=== PATIENT | male | born 1970 | race Caucasian/White ===

== ENCOUNTER → 2020-11-13 | Outpatient (CLI) | payer BC | END | disposition home or self-care (01) | LOC: LABWHC1 16:11 | PROVIDERS: ATTEND Family Medicine | DX: Z20.822 Contact with and (suspected) exposure to COVID-19 (principal) | CPT/HCPCS: U0003; C9803 ==

== ENCOUNTER 2020-12-04 10:45 | Day surgery (SDC) | payer BC ==
[2020-12-04] MEDS ORDERED: LACTATED RINGERS 1,000 ML IV SCH (10:56)
[2020-12-04 11:02] VITALS: RESP 16; TEMP 97
[2020-12-04] MEDS ORDERED: LIDOCAINE 1% (10MG/ML) FOR IV START INTRADERMA ONE (11:06)
[2020-12-04] MEDS ORDERED: PROPOFOL 10 MG/ML 20 ML VIAL IV ONE (11:53)
[2020-12-04] MEDS ORDERED: LIDOCAINE 1% INJ 10MG/ML (20 ML MDV) ONE (11:53)
[2020-12-04] MEDS ORDERED: fentaNYL (PF) 50 MCG/ML 2 ML AMP ONE (11:53)
--- NOTE | 2020-12-04 12:24 | P.PCN ---
Date of Procedure: 12/04/20 Description of Procedure: BRIEF HISTORY: Patient is a 50-year-old male presenting for outpatient colonoscopy for screening for malignant neoplasm colon. No prior colonoscopies reported. No family history of colon cancer. No change in bowel habits or abdominal pain. PROCEDURE PERFORMED: Colonoscopy with polypectomy. PREOPERATIVE DIAGNOSIS: Screening for malignant neoplasm of the colon, no prior colonoscopy reported. ESTIMATED BLOOD LOSS: Minimal. IV sedation per Anesthesia. PROCEDURE: After informed consent was obtained, the patient, was brought into the endoscopy unit. IV sedation was administered by Anesthesia under continuous monitoring. Digital rectal examination was normal. Initially the Olympus CF-190 flexible video colonoscope was then inserted in the rectum, gradually advanced into the cecum without any difficulty. Careful examination was performed as the scope was gradually being withdrawn. Ileocecal valve and the appendiceal orifice were visualized and appeared normal. Prep was excellent. Mucosa of the cecum, ascending colon, transverse colon, descending colon, sigmoid colon, and rectum appeared normal. 2 flat polyps measuring 4 and 8 mm in the transverse colon and rectum removed with cold snare polypectomy. Multiple small and large mouth diverticula in the sigmoid colon. Retroflexion was performed in the rectum and no lesions were seen. The patient tolerated the procedure well. IMPRESSION: 2 polyps removed with cold snare polypectomy from the transverse colon and rectum. Moderate sigmoid diverticulosis. RECOMMENDATIONS: Findings of this examination were discussed with the patient .and his family. Okay to resume diet. Okay to resume medications. Await pathology from polypectomy. Recommend repeat colonoscopy in 5 years for history of colon polyps pending pathology from polypectomies.
[2020-12-04 12:58] VITALS: BP 117/75; PULSE 60
== END 2020-12-04 13:11 | disposition home or self-care (01) ==
LOC: ORWHC2ENDO 10:45
PROVIDERS: ATTEND Internal Medicine
DX: Z12.11 Encounter for screening for malignant neoplasm of colon (principal); D12.3 Benign neoplasm of transverse colon; D12.8 Benign neoplasm of rectum; K57.30 Diverticulosis of large intestine without perforation or abscess without bleeding; Z98.890 Other specified postprocedural states
CPT/HCPCS: 88305; 45385; J2001; J3010; J2704

== ENCOUNTER 2021-08-20 13:33 | Observation (INO) | payer BC ==
[2021-08-20] MEDS ORDERED: ASPIRIN 81 MG PO STA (13:49)
--- NOTE | 2021-08-20 13:59 | ED ---
General Adult HPI - General Chief complaint: Shortness of Breath Stated complaint: SOB/Chest Pressure Time Seen by Provider: 08/20/21 13:40 Source: patient, RN notes reviewed Mode of arrival: ambulatory Limitations: no limitations - History of Present Illness Initial comments: Patient is a healthy 51-year-old male presenting to the emergency Department with complaints of shortness of breath and chest pressure that started yesterday. He denies any fevers, cough. He states this has been intermittent, there is no alleviating or aggravating factors. There is no radiation of the pain. He takes no medications, he has no history of heart disease, he had a stress test in 2014, no abnormal findings. He denies history of blood clots. Denies any abdominal pain, no nausea or vomiting. He denies any falls or trauma. He has no further complaints at this time. Patient's vitals are stable upon arrival. - Related Data Home Medications Medication Instructions Recorded Confirmed No Known Home Medications 08/20/21 08/20/21 Allergies Allergy/AdvReac Type Severity Reaction Status Date / Time No Known Allergies Allergy Verified 08/20/21 14:17 Review of Systems ROS Statement: Those systems with pertinent positive or pertinent negative responses have been documented in the HPI. ROS Other: All systems not noted in ROS Statement are negative. Past Medical History History of Any Multi-Drug Resistant Organisms: None Reported Past Surgical History: Hernia Repair, Orthopedic Surgery Additional Past Surgical History / Comment(s): Left Rotator cuff repair Past Anesthesia/Blood Transfusion Reactions: No Reported Reaction Past Psychological History: No Psychological Hx Reported Smoking Status: Light tobacco smoker General Exam - General Exam Comments Initial Comments: GENERAL: Patient is well-developed and well-nourished. Patient is nontoxic and in no acute distress. HEAD: Atraumatic, normocephalic. EYES: Pupils equal round and reactive to light, extraocular movements intact, sclera anicteric, conjunctiva are normal. Eyelids were unremarkable. ENT: Nares patent, oropharynx clear without exudates. Moist mucous membranes. NECK: Normal range of motion, supple without lymphadenopathy or JVD. LUNGS: Unlabored respirations. Breath sounds clear to auscultation bilaterally and equal. No wheezes rales or rhonchi. HEART: Regular rate and rhythm without murmurs, rubs or gallops. ABDOMEN: Soft, nontender, normoactive bowel sounds. No guarding, no rebound. No masses appreciated. MUSCULOSKELETAL: Normal extremities with adequate strength and normal range of motion, no pitting or edema. No clubbing or cyanosis. No pain with palpation of the anterior chest wall. NEUROLOGICAL: Patient is alert and oriented x 3. Motor and sensory are also intact. Cranial nerves II through XII grossly intact. Symmetrical smile. Normal speech, normal gait. PSYCH: Normal mood, normal affect. SKIN: Warm, Dry, normal turgor, no rashes or lesions noted. Limitations: no limitations Course Vital Signs 08/20/21 08/20/21 13:34 14:43 Temperature 98.2 F Pulse Rate 73 Respiratory 20 20 Rate Blood Pressure 142/92 O2 Sat by Pulse 98 Oximetry EKG Findings - EKG Comments: EKG Findings:: Normal sinus rhythm, normal ECG, no signs of acute ST segment elevation. Ventricular rate 68, NE interval 146, QT 422. Medical Decision Making - Medical Decision Making Patient is a healthy 51-year-old male here with shortness of breath, chest pressure that is been intermittent since yesterday. No fevers, no cough, vital signs are stable. EKG reads normal sinus rhythm, no acute ST segment elevation. Last stress test was in 2014, no abnormal findings. He takes no medications. Labs are within normal limits including a negative d-dimer, troponin is 0.014. Chest x-ray showing no acute process. Patient had negative: Test today at urgent care. Patient will be admitted in observation and further cardiac rule out, serial troponins. He is agreeable to this plan of care. Case discussed with . Patient sent in by Dr. Swanson. - Lab Data Result diagrams: 08/20/21 13:42 08/20/21 13:42 Lab Results 08/20/21 08/20/21 08/20/21 Range/Units 13:42 13:42 13:42 WBC 7.6 (3.8-10.6) k/uL RBC 4.66 (4.30-5.90) m/uL Hgb 15.2 (13.0-17.5) gm/dL Hct 44.4 (39.0-53.0) % MCV 95.4 (80.0-100.0) fL MCH 32.7 (25.0-35.0) pg MCHC 34.3 (31.0-37.0) g/dL RDW 12.0 (11.5-15.5) % Plt Count 360 (150-450) k/uL MPV 6.6 Neutrophils % 62 % Lymphocytes % 30 % Monocytes % 4 % Eosinophils % 2 % Basophils % 0 % Neutrophils # 4.7 (1.3-7.7) k/uL Lymphocytes # 2.2 (1.0-4.8) k/uL Monocytes # 0.3 (0-1.0) k/uL Eosinophils # 0.1 (0-0.7) k/uL Basophils # 0.0 (0-0.2) k/uL PT 10.4 (9.0-12.0) sec INR 1.0 (<1.2) APTT 23.6 (22.0-30.0) sec D-Dimer <0.17 (<0.60) mg/L FEU Sodium 136 L (137-145) mmol/L Potassium 3.8 (3.5-5.1) mmol/L Chloride 104 (98-107) mmol/L Carbon Dioxide 24 (22-30) mmol/L Anion Gap 8 mmol/L BUN 13 (9-20) mg/dL Creatinine 0.88 (0.66-1.25) mg/dL Est GFR (CKD-EPI)AfAm >90 (>60 ml/min/1.73 sqM) Est GFR (CKD-EPI)NonAf >90 (>60 ml/min/1.73 sqM) Glucose 95 (74-99) mg/dL Calcium 9.7 (8.4-10.2) mg/dL Magnesium 2.2 (1.6-2.3) mg/dL Total Bilirubin 0.8 (0.2-1.3) mg/dL AST 25 (17-59) U/L ALT 25 (4-49) U/L Alkaline Phosphatase 67 (38-126) U/L Troponin I (0.000-0.034) ng/mL NT-Pro-B Natriuret Pep pg/mL Total Protein 7.6 (6.3-8.2) g/dL Albumin 4.6 (3.5-5.0) g/dL Urine Color Urine Appearance (Clear) Urine pH (5.0-8.0) Ur Specific Hamilton (1.001-1.035) Urine Protein (Negative) Urine Glucose (UA) (Negative) Urine Ketones (Negative) Urine Blood (Negative) Urine Nitrite (Negative) Urine Bilirubin (Negative) Urine Urobilinogen (<2.0) mg/dL Ur Leukocyte Esterase (Negative) Urine RBC (0-5) /hpf Urine WBC (0-5) /hpf Urine Mucus (None) /hpf 08/20/21 08/20/21 08/20/21 Range/Units 13:42 13:42 14:13 WBC (3.8-10.6) k/uL RBC (4.30-5.90) m/uL Hgb (13.0-17.5) gm/dL Hct (39.0-53.0) % MCV (80.0-100.0) fL MCH (25.0-35.0) pg MCHC (31.0-37.0) g/dL RDW (11.5-15.5) % Plt Count (150-450) k/uL MPV Neutrophils % % Lymphocytes % % Monocytes % % Eosinophils % % Basophils % % Neutrophils # (1.3-7.7) k/uL Lymphocytes # (1.0-4.8) k/uL Monocytes # (0-1.0) k/uL Eosinophils # (0-0.7) k/uL Basophils # (0-0.2) k/uL PT (9.0-12.0) sec INR (<1.2) APTT (22.0-30.0) sec D-Dimer (<0.60) mg/L FEU Sodium (137-145) mmol/L Potassium (3.5-5.1) mmol/L Chloride (98-107) mmol/L Carbon Dioxide (22-30) mmol/L Anion Gap mmol/L BUN (9-20) mg/dL Creatinine (0.66-1.25) mg/dL Est GFR (CKD-EPI)AfAm (>60 ml/min/1.73 sqM) Est GFR (CKD-EPI)NonAf (>60 ml/min/1.73 sqM) Glucose (74-99) mg/dL Calcium (8.4-10.2) mg/dL Magnesium (1.6-2.3) mg/dL Total Bilirubin (0.2-1.3) mg/dL AST (17-59) U/L ALT (4-49) U/L Alkaline Phosphatase (38-126) U/L Troponin I 0.014 (0.000-0.034) ng/mL NT-Pro-B Natriuret Pep 60 pg/mL Total Protein (6.3-8.2) g/dL Albumin (3.5-5.0) g/dL Urine Color Light Yellow Urine Appearance Clear (Clear) Urine pH 5.5 (5.0-8.0) Ur Specific Hamilton 1.007 (1.001-1.035) Urine Protein Negative (Negative) Urine Glucose (UA) Negative (Negative) Urine Ketones Trace H (Negative) Urine Blood Trace H (Negative) Urine Nitrite Negative (Negative) Urine Bilirubin Negative (Negative) Urine Urobilinogen <2.0 (<2.0) mg/dL Ur Leukocyte Esterase Negative (Negative) Urine RBC 1 (0-5) /hpf Urine WBC <1 (0-5) /hpf Urine Mucus Rare H (None) /hpf Disposition Clinical Impression: Chest pain Disposition: ADMITTED IP TO THIS HOSP Condition: Stable Referrals: Deng Hinds MD [Primary Care Provider] - 1-2 days Decision Date: 08/20/21 Decision Time: 15:27
[2021-08-20 14:11] LABS: Basophils % (A) 0 %; Eosinophils # (A) 0.1 k/uL (0-0.7); Eosinophils % (A) 2 %; HCT 44.4 % (39.0-53.0); HGB 15.2 gm/dL (13.0-17.5); Lymphocytes # (A) 2.2 k/uL (1.0-4.8); Lymphocytes % (A) 30 %; MCH 32.7 pg (25.0-35.0); MCHC 34.3 g/dL (31.0-37.0); MCV 95.4 fL (80.0-100.0); Mean Platelet Volume 6.6; Monocytes # (A) 0.3 k/uL (0-1.0); Monocytes % (A) 4 %; Neutrophils # (A) 4.7 k/uL (1.3-7.7); Neutrophils % (A) 62 %; Platelet Count 360 k/uL (150-450); RBC 4.66 m/uL (4.30-5.90); WBC 7.6 k/uL (3.8-10.6)
--- NOTE | 2021-08-20 14:18 | XR ---
EXAMINATION TYPE: XR chest 2V DATE OF EXAM: 08/20/2021 COMPARISON: NONE TECHNIQUE: PA and lateral views submitted. HISTORY: Chest pain FINDINGS: The lungs are clear and there is no pneumothorax, pleural effusion, or focal pneumonia. Heart size normal. No overt failure. Biapical pleural thickening. Hyperinflation suggests COPD. Hypertrophic and degenerative change of the spine IMPRESSION: 1. No acute process. Correlate for COPD.
[2021-08-20 14:25] LABS: ALT 25 U/L (4-49); AST 25 U/L (17-59); African American GFR (CKD) >90 (>60 ml/min/1.73 sqM); Albumin 4.6 g/dL (3.5-5.0); Alkaline Phosphatase 67 U/L (38-126); Anion Gap 8 mmol/L; Blood Urea Nitrogen 13 mg/dL (9-20); Calcium 9.7 mg/dL (8.4-10.2); Carbon Dioxide 24 mmol/L (22-30); Chloride 104 mmol/L (98-107); Glucose 95 mg/dL (74-99); Magnesium 2.2 mg/dL (1.6-2.3); Non-African American GFR(CKD) >90 (>60 ml/min/1.73 sqM); Partial Thromboplastin Time 23.6 sec (22.0-30.0); Potassium 3.8 mmol/L (3.5-5.1); Prothrombin Time 10.4 sec (9.0-12.0); Sodium 136 mmol/L (137-145); Total Bilirubin 0.8 mg/dL (0.2-1.3); Total Protein 7.6 g/dL (6.3-8.2)
[2021-08-20 14:38] LABS: Appearance,Urine Clear (Clear); Bilirubin,Urine Negative (Negative); Blood,Urine Trace (Negative); Color,Urine Light Yellow; Glucose,Urine (UA) Negative (Negative); Ketones,Urine Trace (Negative); Leukocyte Esterase,Urine Negative (Negative); Mucus,Urine Rare /hpf; Nitrite,Urine Negative (Negative); PH, Urine 5.5 (5.0-8.0); Protein,Urine Negative (Negative); RBC,Urine 1 /hpf (0-5); Specific Gravity,Urine 1.007 (1.001-1.035); Urobilinogen,Urine <2.0 mg/dL (<2.0); WBC,Urine <1 /hpf (0-5)
[2021-08-20] MEDS ORDERED: NITROGLYCERIN SL TABS 0.4 MG TAB SUBLINGUAL PRN (15:24)
--- NOTE | 2021-08-21 08:05 | P.CRDCN ---
History of Present Illness History of present illness: HISTORY OF PRESENTING ILLNESS This is a pleasant 51-year-old male with past medical history of tobacco use. 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 We have been asked to see in consultation f or Chest pain. Patient presents emergency department with chest pressure and shortness of breath. His chest pressure and shortness of breath started Friday. Describes it as a dull pressure. 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 Friday at work, he was noticing more frequent chest pressure and short of breath, he felt like he couldn't take a deep breath. He denies associated nausea, vomiting, diaphoresis, lightheadedness, or dizziness. He states it was non-exertional and non-radiating. However, he did feel a pressure in his lower neck. He denies symptoms of orthopnea or PND. Denies palpitations, syncope or pre-syncope. He denies history of diabetes, MD, Stroke, Diabetes or hypertension or heart failure. Denies family history of CAD. He states he occasionally has a cigar and cigarettes once in a while, sometimes not even weekly. He denies illicit drug use. Does occassionally drink alcohol, not daily use. DIAGNOSTICS EKG reveals sinus rhythm, rate 68, LVH, no significant ST-T wave abnormalities Telemetry tracings indicate sinus mechanism HR 50s-60s Chest xray hyperinflation of lungs, no acute cardiopulmonary process Laboratory reviewed, CBC unremarkable, d-dimer negative, sodium 136, potassium 3.8, BUN 13, serum creatinine 0.8, magnesium 2.2, troponin negative 3, proBNP 60 Current home medications include none Stress echo in 2015- negative REVIEW OF SYSTEMS At the time of my exam: CONSTITUTIONAL: Denies fever or chills. CARDIOVASCULAR: +chest pain, +shortness of breath, Denies orthopnea, PND or palpitations. RESPIRATORY: Denies cough. GASTROINTESTINAL: Denies abdominal pain, diarrhea, constipation, nausea or vomiting. MUSCULOSKELETAL: Denies myalgias. NEUROLOGIC: Denies numbness, tingling, headache or weakness. ENDOCRINE: Denies fatigue, weight change, polydipsia or polyurina. GENITOURINARY: Denies burning, hematuria or urgency with micturation. HEMATOLOGIC: Denies history of anemia or bleeding. PHYSICAL EXAMINATION Blood pressure 122/77, heart rate 4, afebrile saturations 99% on room air CONSTITUTIONAL: No apparent distress. HEENT: Head is normocephalic. Pupils are equal, round. Sclerae anicteric. Mucous membranes of the mouth are moist. No JVD. No carotid bruit. CHEST EXAMINATION: Lungs are clear to auscultation. No chest wall tenderness is noted on palpation or with deep breathing. HEART EXAMINATION: Regular rate and rhythm. S1, S2 heard. No murmurs, gallops or rub. ABDOMEN: Soft, nontender. Positive bowel sounds. EXTREMITIES: 2+ peripheral pulses, no lower extremity edema and no calf tenderness. SKIN: warm, dry NEUROLOGIC EXAMINATION: Patient is awake, alert and oriented x3. ASSESSMENT Chest pain, atypical, acute coronary syndrome ruled out Tobacco use PLAN An acute coronary event has been ruled out with no EKG evidence of ischemia and negative cardiac enzymes. Obtain 2D echocardiogram and doppler study to assess cardiac structure and function. Perform stress echo test to assess for stress induced cardiac ischemia. If ab normal will consider coronary angiography. Check Lipid Panel Smoking cessation discussed and highly recommended. If stress test with no evidence of reversible ischemia ok to discharge from cardiology perspective. Thank you kindly for this consultation. Nurse Practitioner note has been reviewed, I agree with a documented findings and plan of care. Patient was seen and examined. Past Medical History Additional Past Medical History / Comment(s): previuos diverticulitis History of Any Multi-Drug Resistant Organisms: None Reported Past Surgical History: Hernia Repair, Orthopedic Surgery Additional Past Surgical History / Comment(s): Left Rotator cuff repair Past Anesthesia/Blood Transfusion Reactions: No Reported Reaction Past Psychological History: No Psychological Hx Reported Smoking Status: Light tobacco smoker Past Alcohol Use History: Occasional - Past Family History Father Family Medical History: Hyperlipidemia, Hypertension Additional Family Medical History / Comment(s): kidney failure and hemodialysis, now Mother Additional Family Medical History / Comment(s): leaky valve Medications and Allergies Home Medications Medication Instructions Recorded Confirmed Type No Known Home Medications 08/20/21 08/20/21 History Allergies Allergy/AdvReac Type Severity Reaction Status Date / Time No Known Allergies Allergy Verified 08/20/21 14:17 Physical Exam Vitals: Vital Signs Temp Pulse Pulse Resp BP BP Pulse Ox 08/21/21 07:00 97.5 F L 54 L 18 122/77 99 08/21/21 02:00 52 L 08/21/21 01:57 97.8 F 52 L 18 120/68 98 08/20/21 20:00 18 08/20/21 19:48 98.3 F 56 L 18 135/77 97 08/20/21 14:43 20 08/20/21 13:34 98.2 F 73 20 142/92 98 Intake and Output 08/20/21 08/21/21 08/21/21 22:59 06:59 14:59 Intake Total 0 0 Balance 0 0 Intake: Oral 0 0 Other: Voiding Method Toilet # Voids 2 1 Weight 63.503 kg Results 08/20/21 13:42 08/20/21 13:42 Cardiac Enzymes 08/20/21 08/20/21 08/20/21 Range/Units 13:42 13:42 16:57 AST 25 (17-59) U/L Troponin I 0.014 <0.012 (0.000-0.034) ng/mL 08/20/21 Range/Units 20:01 AST (17-59) U/L Troponin I <0.012 (0.000-0.034) ng/mL Coagulation 08/20/21 Range/Units 13:42 PT 10.4 (9.0-12.0) sec APTT 23.6 (22.0-30.0) sec CBC 08/20/21 Range/Units 13:42 WBC 7.6 (3.8-10.6) k/uL RBC 4.66 (4.30-5.90) m/uL Hgb 15.2 (13.0-17.5) gm/dL Hct 44.4 (39.0-53.0) % Plt Count 360 (150-450) k/uL Comprehensive Metabolic Panel 08/20/21 Range/Units 13:42 Sodium 136 L (137-145) mmol/L Potassium 3.8 (3.5-5.1) mmol/L Chloride 104 (98-107) mmol/L Carbon Dioxide 24 (22-30) mmol/L BUN 13 (9-20) mg/dL Creatinine 0.88 (0.66-1.25) mg/dL Glucose 95 (74-99) mg/dL Calcium 9.7 (8.4-10.2) mg/dL AST 25 (17-59) U/L ALT 25 (4-49) U/L Alkaline Phosphatase 67 (38-126) U/L Total Protein 7.6 (6.3-8.2) g/dL Albumin 4.6 (3.5-5.0) g/dL Current Medications Generic Name Dose Route Start Last Admin Trade Name Freq PRN Reason Stop Dose Admin Aspirin 325 mg 08/21/21 09:00 Aspirin 325 Mg Tab PO DAILY CARMENZA Nitroglycerin 0.4 mg 08/20/21 15:24 Nitroglycerin Sl Tabs 0.4 Mg Tab SUBLINGUAL Q5M PRN Chest Pain Intake and Output 08/20/21 08/21/21 08/21/21 22:59 06:59 14:59 Intake Total 0 0 Balance 0 0 Intake: Oral 0 0 Other: Voiding Method Toilet # Voids 2 1 Weight 63.503 kg 08/20/21 13:42 08/20/21 13:42
[2021-08-21] MEDS ORDERED: ASPIRIN 325 MG TAB PO SCH (09:00)
[2021-08-21] MEDS ORDERED: ASPIRIN 81 MG PO SCH (09:00)
[2021-08-21] MEDS ORDERED: ALPRAZolam 0.25 MG TAB PO PRN (09:27)
[2021-08-21] MEDS ORDERED: ATORVASTATIN 80 MG TAB PO STA (09:27)
[2021-08-21] MEDS ORDERED: ALPRAZolam 0.5 MG TAB PO PRN (09:27)
[2021-08-21] MEDS: SODIUM CHLORIDE 0.9% 1,000 ML in EMPTY BAG 1 BAG IV SCH (09:46)
--- NOTE | 2021-08-21 09:46 | ECHOF ---
Referral Reason:chest pain MEASUREMENTS -------- HEIGHT: 167.6 cm WEIGHT: 63.5 kg BP: 122/77 RVIDd: 4.0 cm (< 3.3) IVSd: 1.1 cm (0.6 - 1.1) LVIDd: 6.0 cm (3.9 - 5.3) LVPWd: 1.0 cm (0.6 - 1.1) IVSs: 1.6 cm LVIDs: 4.6 cm LVPWs: 1.6 cm EF(Teich): 47 % %FS: 24 % LAESV Index (A-L): 35.07 ml/m IVSd: 1.2 cm (0.6 - 1.1) LVIDd: 6.1 cm (3.9 - 5.3) LVPWd: 1.1 cm (0.6 - 1.1) IVSs: 1.5 cm LVIDs: 4.7 cm LVPWs: 1.5 cm EDV(Teich): 189 ml ESV(Teich): 101 ml EF(Teich): 47 % %FS: 24 % SV(Teich): 88 ml Ao Diam: 3.3 cm (2.0 - 3.7) AV Cusp: 2.5 cm (1.5 - 2.6) LA Diam: 3.2 cm (2.7 - 3.8) MV EXCURSION: 20.000 mm (> 18.000) MV EF SLOPE: 65 mm/s (70 - 150) EPSS: 1.7 cm MV E Sarbjit: 0.46 m/s MV DecT: 307 ms MV A Sarbjit: 0.65 m/s MV E/A Ratio: 0.71 RAP: 5.00 mmHg RVSP: 21.37 mmHg FINDINGS -------- Sinus rhythm. Resting bradycardia (HR<60bpm). This was a technically good study. The left ventricle is mildly dilated. Left ventricular wall thickness is normal. There is moderat e global hypokinesis of LV . Overall left ventricular systolic function is moderately impaired with , an EF between 35 - 40 %. The right ventricle is moderately enlarged. LA is moderately dilated 34-39 ml/m2 The right atrial size is normal. Interatrial and interventricular septum intact. The aortic valve is trileaflet, and appears structurally normal. No aortic stenosis or regurgitation. The mitral valve leaflets are mildly thickened. Moderate mitral regurgitation is present. Mild tricuspid regurgitation present. Right ventricular systolic pressure is normal at < 35 mmHg. The right ventricular systolic pressure, as measured by Doppler, is 21.37mmHg. Trace/mild (physiologic) pulmonic regurgitation. The aortic root size is normal. Normal inferior vena cava with normal inspiratory collapse consistent with estimated right atrial pre ssure of 5 mmHg. There is no pericardial effusion. CONCLUSIONS -------- 1. The left ventricle is mildly dilated. 2. There is moderate global hypokinesis of LV . 3. Overall left ventricular systolic function is moderately impaired with, an EF between 35 - 40 %. 4. The right ventricle is moderately enlarged. 5. LA is moderately dilated 34-39 ml/m2 6. The aortic valve is trileaflet, and appears structurally normal. No aortic stenosis or regurgitati on. 7. Moderate mitral regurgitation is present. 8. Mild tricuspid regurgitation present. 9. Trace/mild (physiologic) pulmonic regurgitation. 10. There is no pericardial effusion. STRAINER CLEANER: Tammy Zuniga RDCS
[2021-08-21] MEDS ORDERED: LIDOCAINE 1% INJ 10MG/ML (20 ML MDV) ONE (10:19)
[2021-08-21] MEDS ORDERED: VERAPAMIL 2.5 MG/ML 2 ML AMP ONE (10:19)
[2021-08-21] MEDS ORDERED: fentaNYL (PF) 50 MCG/ML 2 ML AMP ONE (10:31)
[2021-08-21] MEDS ORDERED: HEPARIN SODIUM 1,000 UN/ML (10ML VL) ONE (10:32)
[2021-08-21] MEDS ORDERED: IV FLUID CONTINUATION 900 ML IV ONE (10:39)
[2021-08-21] MEDS ORDERED: fentaNYL (PF) 50 MCG/ML 2 ML AMP IV ONE (10:46)
[2021-08-21] MEDS ORDERED: LIDOCAINE 1% INJ 10MG/ML (20 ML MDV) SQ ONE (10:48)
[2021-08-21] MEDS ORDERED: VERAPAMIL SYRINGE (5 MG/10 ML) INTRAARTER ONE (10:49)
[2021-08-21 10:51] LABS: Chol/HDL Ratio 2.29 Ratio; LDL Cholesterol,Calculated 102.8 mg/dL (0.0-131.0); Triglycerides 60.8 mg/dL (0.00-149.00); VLDL Calculation 12.16 mg/dL (5.00-40.00)
[2021-08-21] MEDS ORDERED: IOPAMIDOL-370 125ML BTL INJ ONE (11:19)
[2021-08-21] MEDS ORDERED: RX INFO: IV CONTRAST WAS GIVEN 1 EACH MISC MISCELLANE PRN (11:29)
[2021-08-21] MEDS ORDERED: SODIUM CHLORIDE 0.9% 1,000 ML IV SCH (11:30)
[2021-08-21] MEDS ORDERED: METOPROLOL SUCCINATE (ER) 25 MG TAB.ER.24H PO SCH (11:45)
--- NOTE | 2021-08-21 12:17 | CC ---
CARDIAC CATHETERIZATION REPORT Mr. Monterroso is a 51-year-old male with no history of cardiac disease who presented with symptoms of progressive dyspnea on exertion and chest discomfort. His cardiac enzymes and EKG were unremarkable, but he had an echocardiogram that revealed mildly dilated left ventricle with mild to moderate global hypokinesis. In view of that, recommendation was made regarding cardiac catheterization. The procedure as well as its risks and complications were discussed with the patient, who was in full understanding and agreement. PROCEDURE DESCRIPTION: Patient was brought to the sleep lab technologist in a fasting, semi-sedated state after receiving fentanyl and Benadryl and achieving a moderate conscious sedated state. The right radial artery was cannulated with the needle, but there was inability to advance a wire in spite of multiple attempts. At that point, using Xylocaine anesthesia and Seldinger technique, a 6-Nigerian sheath was introduced in the right femoral artery. Selective right and left coronary angiography was performed using 6-Nigerian 4 bend right and left Judkin's catheters. Multiple views were taken of the arteries, including hemiaxial views. Following that, a 6-Nigerian tight pigtail catheter was introduced into the left ventricle and a 30-degree SERRANO view of the left ventricle was obtained. Following that, catheter and sheath were removed. Hemostasis was obtained with deployment of an Angio- Seal. There was no immediate complication. Patient was returned to his room in stable condition. FINDINGS: LEFT MAIN: This is a large-sized vessel bifurcating into left circumflex and left anterior descending artery. Left main coronary artery has no evidence of high- grade stenosis. LEFT ANTERIOR DESCENDING CORONARY ARTERY: This is a large-sized vessel reaching to the apex with a wrap around the apex segment giving rise to a large diagonal branch in the mid segment. The left anterior descending coronary artery as well as its branches have no evidence of high-grade stenosis. LEFT CIRCUMFLEX: This is a large nondominant vessel giving rise to a large obtuse marginal branch. The left circumflex as well as its branches have no evidence of obstructive coronary artery disease. RIGHT CORONARY ARTERY: This is a large dominant vessel bifurcating into PDA and posterolateral segment and branches. The right coronary artery as well as its branches have no evidence of obstructive coronary artery disease. LEFT VENTRICULOGRAM: Left ventriculogram was performed in 30-degree SERRANO view and revealed mild global hypokinesis. The estimated ejection fraction is 45%. There was no significant mitral regurgitation. HEMODYNAMICS: There was no gradient across the aortic valve. The left ventricular end- diastolic pressure was 4 to 6 mmHg. CONCLUSION: 1. Normal coronary arteries. 2. Mildly impaired left ventricular systolic function with global hypokinesis. 3. Normal filling pressure. RECOMMENDATIONS: The findings are consistent with nonischemic cardiomyopathy. I have recommended to initiate treatment with beta edith and, depending on his symptoms, further recommendations will be made. Those findings and recommendations were discussed with the patient and his family, and they are in full understanding and agreement. Duration of sedation was 35 minutes. MMABDON / IJN: [id number] / ERMA
[2021-08-21] MEDS: METOPROLOL SUCCINATE (ER) 25 MG TAB.ER.24H PO SCH (14:36)
--- NOTE | 2021-08-21 21:47 | P.HPIM ---
History of Present Illness H&P Date: 08/21/21 Chief Complaint: Chest discomfort with associated shortness of breath 51-year-old male is admitted to the hospital with no significant medical history for chest discomfort with associated shortness of breath for 2 day duration. Patient had extensive diagnostic workup in emergency department with unremarkable CBC, coagulation studies within normal range, CMP within acceptable range, negative troponins, 12-lead EKG no acute ST changes noted. Chest x-ray questionable COPD due to hyperinflation. Echocardiogram; moderate global hypokinesia of the left ventricle, left ventricle systolic function is moderately impaired with EF of 35-40%. Patient was initially seen by cardiology after findings of echocardiogram, patient consented to cardiac catheterization with Dr. Dumont, see dictation from Dr. Dumont regarding cardiac catheterization, normal coronary arteries, mildly impaired left ventricular systolic function with global hypokinesia, and normal filling pressures. 08/21/2021 Patient seen and examined at bedside after cardiac catheterization. Patient laying comfortably in bed in the supine position. Patient denies any complaints at this time. Review diagnostic testing and diagnostic labs. Awaiting on cardiology's recommendations for reduction OF ejection fraction and current cardiac regimen of medications. Patient no acute signs of distress Review of Systems Constitutional: Reports as per HPI Ears, nose, mouth and throat: Reports as per HPI Cardiovascular: Reports as per HPI Respiratory: Reports as per HPI Gastrointestinal: Reports as per HPI Genitourinary: Reports as per HPI Musculoskeletal: Reports as per HPI Integumentary: Reports as per HPI Neurological: Reports as per HPI Psychiatric: Reports as per HPI Endocrine: Reports as per HPI Hematologic/Lymphatic: Reports as per HPI Allergic/Immunologic: Reports as per HPI Past Medical History Additional Past Medical History / Comment(s): previuos diverticulitis History of Any Multi-Drug Resistant Organisms: None Reported Past Surgical History: Hernia Repair, Orthopedic Surgery Additional Past Surgical History / Comment(s): Left Rotator cuff repair Past Anesthesia/Blood Transfusion Reactions: No Reported Reaction Past Psychological History: No Psychological Hx Reported Smoking Status: Light tobacco smoker Past Alcohol Use History: Occasional - Past Family History Father Family Medical History: Hyperlipidemia, Hypertension Additional Family Medical History / Comment(s): kidney failure and hemodialysis, now Mother Additional Family Medical History / Comment(s): leaky valve Medications and Allergies Home Medications and Allergies Comment(s): Medications and ALLERGIES reviewed Home Medications Medication Instructions Recorded Confirmed Type No Known Home Medications 08/20/21 08/20/21 History Allergies Allergy/AdvReac Type Severity Reaction Status Date / Time No Known Allergies Allergy Verified 08/20/21 14:17 Physical Exam Vitals: Vital Signs Temp Pulse Resp BP Pulse Ox 08/21/21 20:00 53 L 17 08/21/21 19:52 98.4 F 53 L 17 118/70 97 08/21/21 15:30 53 L 16 109/65 98 08/21/21 14:30 66 16 117/73 98 08/21/21 13:30 48 L 16 120/77 98 08/21/21 13:29 98 F 18 115/74 98 08/21/21 13:00 54 L 14 128/83 98 08/21/21 12:30 48 L 14 123/80 98 08/21/21 12:15 57 L 14 116/73 96 08/21/21 12:00 47 L 14 117/73 97 08/21/21 11:45 49 L 14 119/75 96 08/21/21 07:00 97.5 F L 54 L 18 122/77 99 08/21/21 02:00 52 L 08/21/21 01:57 97.8 F 52 L 18 120/68 98 Intake and Output 08/21/21 08/21/21 08/21/21 06:59 14:59 22:59 Intake Total 0 320 120 Balance 0 320 120 Intake: IV 200 Oral 0 120 120 Other: Voiding Method Toilet # Voids 1 0 1 - Constitutional General appearance: cooperative, no acute distress - EENT Eyes: EOMI, PERRLA, normal appearance Ears: bilateral: normal - Neck Neck: normal ROM Carotids: bilateral: upstroke normal Thyroid: bilateral: normal size - Respiratory Respiratory: bilateral: CTA - Cardiovascular Sinus bradycardia Heart rate: 51 Heart sounds: normal: S1, S2 radial pulse Peripheral Pulses: bilateral: Normal dorsalis pedis Peripheral Pulses: bilateral: Normal - Gastrointestinal General gastrointestinal: normal bowel sounds, soft - Integumentary Integumentary: normal turgor - Neurologic Neurologic: CNII-XII intact - Musculoskeletal Musculoskeletal: gait normal - Psychiatric Psychiatric: A&O x's 3, appropriate affect Results CBC & Chem 7: 08/20/21 13:42 08/20/21 13:42 Labs: Abnormal Lab Results - Last 24 Hours (Table) 08/21/21 Range/Units 05:32 Cholesterol 204.00 H (0.00-200.00) mg/dL HDL Cholesterol 89.00 H (40.00-60.00) mg/dL Chest x-ray: report reviewed Thrombosis Risk Factor Assmnt - Choose All That Apply Any of the Below Risk Factors Present?: Yes Each Factor Represents 1 point: Age 41-60 years, Varicose veins Other Risk Factors: No Thrombosis Risk Factor Assessment Total Risk Factor Score: 2 Thrombosis Risk Factor Assessment Level: Low Risk Assessment and Plan Assessment: Chest pain rule out ACS Systolic ejection fraction 35-40% Global hypokinesia noted on echocardiogram and cardiac catheterization History of nicotine dependence Full code Plan: Chest pain with reduction of ejection fraction of 30-45%, normal cardiac catheterization; consultation with cardiology for recommendations Continue to monitor vital signs and diagnostic testing Continue medical management Further recommendations come based on patient's clinical condition Time with Patient: Greater than 30
[2021-08-22] MEDS: SODIUM CHLORIDE 0.9% 1,000 ML in EMPTY BAG 1 BAG IV SCH (02:53)
[2021-08-22] MEDS ORDERED: HEPARIN SODIUM,PORCINE 2,500 UNIT in SODIUM CHLORIDE 0.9% 250 ML IRRIGATION PRN (07:00)
[2021-08-22] MEDS ORDERED: HEPARIN SODIUM,PORCINE 10,000 UNIT in SODIUM CHLORIDE 0.9% 1,000 ML IRRIGATION PRN (07:00)
[2021-08-22 07:06] LABS: African American GFR (CKD) >90 (>60 ml/min/1.73 sqM); Anion Gap 7 mmol/L; Blood Urea Nitrogen 19 mg/dL (9-20); Calcium 9.8 mg/dL (8.4-10.2); Carbon Dioxide 27 mmol/L (22-30); Chloride 102 mmol/L (98-107); Glucose 103 mg/dL (74-99); Non-African American GFR(CKD) >90 (>60 ml/min/1.73 sqM); Potassium 5.1 mmol/L (3.5-5.1); Sodium 136 mmol/L (137-145)
[2021-08-22 08:10] VITALS: BP 120/68; PULSE 50; RESP 18; TEMP 98
[2021-08-22] MEDS: METOPROLOL SUCCINATE (ER) 25 MG TAB.ER.24H PO SCH (09:00)
--- NOTE | 2021-08-22 11:25 | PN ---
PROGRESS NOTE Mr. Monterroso is a 51-year-old male who presented with symptoms of chest discomfort and some dyspnea. His cardiac enzymes were unremarkable, but his echocardiogram revealed mild cardiomyopathy. In view of that, he underwent cardiac catheterization and was found to have no evidence of obstructive coronary artery disease, with mild global hypokinesis. He is feeling well this morning. He is denying any chest pain. His breathing is stable. He denies any dizziness or palpitations. He continues on aspirin once a day, Toprol-XL 12.5 mg daily. PHYSICAL EXAMINATION: Blood pressure 118/70 with a heart rate in 50s. LUNGS: Clear. HEART: Regular rate and rhythm. S1, S2. No S3. Plus S4. No rub. ABDOMEN: Soft, nontender. EXTREMITIES: No edema. Right groin hematoma. IMPRESSION: Cardiomyopathy of unclear etiology. No evidence of obstructive coronary artery disease or mitral valve disease. RECOMMENDATIONS: Patient should be able to be discharged home today on the present therapy and he will be followed as an outpatient and probably undergo a cardiac MRI to rule out any evidence of myocarditis or infiltrative cardiomyopathy. MMODL / IJN: [id number] /
--- NOTE | 2021-08-22 18:35 | P.DS ---
Providers Date of admission: 08/20/21 15:26 Expected date of discharge: 08/22/21 Attending physician: Deng Hinds Consults: 08/20/21 15:24 Consult Physician Urgent Consulting Provider: [facility] Consult Reason/Comments: chest pain Do you want consulting provider notified?: Yes Primary care physician: Deng Hinds Hospital Course: 51-year-old male is admitted to the hospital with no significant medical history for chest discomfort with associated shortness of breath for 2 day duration. Patient had extensive diagnostic workup in emergency department with unremarkable CBC, coagulation studies within normal range, CMP within acceptable range, negative troponins, 12-lead EKG no acute ST changes noted. Chest x-ray questionable COPD due to hyperinflation. Echocardiogram; moderate global hypokinesia of the left ventricle, left ventricle systolic function is moderately impaired with EF of 35-40%. Patient was initially seen by cardiology after findings of echocardiogram, patient consented to cardiac catheterization with Dr. Dumont, see dictation from Dr. Dumont regarding cardiac catheterization, normal coronary arteries, mildly impaired left ventricular systolic function with global hypokinesia, and normal filling pressures. During hospital stay patient denied any chest pain, shortness of breath or new onset of symptoms. Patient was evaluated by cardiology and recommendations for possible cardiac MRI rule out myocarditis. Patient will be discharged in stable condition with a guarded prognosis due to newly diagnosed cardiomyopathy with a reduction in ejection fraction of 35-40%. Patient to follow-up with primary care 1-2 days, patient to follow-up with cardiology in 1-2 weeks Assessment: Chest pain rule out ACS Systolic ejection fraction 35-40% Global hypokinesia noted on echocardiogram and cardiac catheterization History of nicotine dependence Full code Final diagnosis Mild cardiomyopathy with an ejection fraction of 35-40% Deborah will follow-up with cardiology for possible myocarditis or infiltrative cardiomyopathy, we'll continue with cardiac medications recommended by cardiology Health Concerns: Complexity of medical treatment plan Pertinent Studies: Echocardiogram see dictation from cardiology Procedures: Cardiac catheterization with no evidence of obstructive coronary artery disease, with mild global hypokinesia Patient Condition at Discharge: Fair Plan - Discharge Summary New Discharge Prescriptions: New Metoprolol Succinate (ER) [Toprol XL] 12.5 mg PO DAILY 30 Days #15 tablet Discharge Medication List Metoprolol Succinate (ER) [Toprol XL] 12.5 mg PO DAILY 30 Days #15 tablet 08/22/21 [Rx] Follow up Appointment(s)/Referral(s): Deng Hinds MD [Primary Care Provider] - 08/24/21 2:20 pm (Appointment is with [facility]) Jovanni Dumont MD [STAFF PHYSICIAN] - 08/29/21 9:45 am Patient Instructions/Handouts: *Surgery [facility] - After Heart Catheterization - Ekg Tech Instructions, Chest Pain (DC) Activity/Diet/Wound Care/Special Instructions: heart cath 08/21/2021 - no stents placed abnormal Echocardiogram - follow up with cardiology, outpatient MRI Discharge Disposition: HOME SELF-CARE
== END 2021-08-22 13:45 | disposition home or self-care (01) ==
LOC: EC 13:33 → 6NMEDSUR 15:26
PROVIDERS: ADMIT Family Medicine; ATTEND Family Medicine
DX: I42.9 Cardiomyopathy, unspecified (principal); F17.210 Nicotine dependence, cigarettes, uncomplicated; I34.0 Nonrheumatic mitral (valve) insufficiency; Z71.6 Tobacco abuse counseling; M51.36 Other intervertebral disc degeneration, lumbar region; R91.8 Other nonspecific abnormal finding of lung field; K57.90 Diverticulosis of intestine, part unspecified, without perforation or abscess without bleeding; Z84.1 Family history of disorders of kidney and ureter; Z82.49 Family history of ischemic heart disease and other diseases of the circulatory system
CPT/HCPCS: 93458; 99285; 36415; 93005; 93306; 85379; 83880; 80061; 80053; 80048; 83735; 84484; 85025; 85610; 85730; 81001; 71046; G0378 ×3; C1760; C1894 ×2; C1769; J2001; J3010; Q9967

== ENCOUNTER → 2022-08-30 | Outpatient (CLI) | payer BC ==
--- NOTE | 2022-08-31 10:18 | XR ---
EXAMINATION TYPE: XR chest 2V, XR ribs RT 2 views DATE OF EXAM: 08/30/2022 COMPARISON: None HISTORY: 52-year-old male R07.81, pleurodynia, right-sided rib pain since hockey injury 2 weeks ago. FINDINGS: Chest: The cardiomediastinal silhouette, aorta, and pulmonary vasculature are within normal limits. L ungs and pleural spaces are clear. Right RIBS: No displaced rib fracture is seen. There is moderate degenerative change of the bilateral AC joints noted. IMPRESSION: No acute cardiopulmonary process. No displaced right rib fracture seen. Moderate bilateral AC joint O A.
== END | disposition home or self-care (01) ==
LOC: RADXRMAIN 16:51
PROVIDERS: ATTEND Family Medicine
DX: M19.011 Primary osteoarthritis, right shoulder (principal); M19.012 Primary osteoarthritis, left shoulder; R07.81 Pleurodynia
CPT/HCPCS: 71046

== ENCOUNTER → 2024-04-09 | Outpatient (CLI) | payer BC ==
[2024-04-09 21:42] LABS: ALT 21 U/L (10-49); AST 19 U/L (14-35); Albumin 4.7 g/dL (3.8-4.9); Albumin/Globulin Ratio 2.04 Ratio (1.60-3.17); Alkaline Phosphatase 71 U/L (41-126); Blood Urea Nitrogen 21.5 mg/dL (9.0-27.0); Calcium 9.6 mg/dL (8.7-10.3); Carbon Dioxide 26.3 mmol/L (21.6-31.8); Chloride 103 mmol/L (96-109); Globulin 2.3 g/dL (1.6-3.3); Glucose 95 mg/dL (70-110); Potassium 4.9 mmol/L (3.5-5.5); Sodium 141 mmol/L (135-145); Total Bilirubin 0.5 mg/dL (0.3-1.2)
[2024-04-09 22:15] LABS: NT-Pro-B-Type Natriuretic Pept <36 pg/mL (0-125)
== END | disposition home or self-care (01) ==
LOC: LABWHC1 10:09
PROVIDERS: ATTEND Internal Medicine Interventional Cardiology
DX: I42.8 Other cardiomyopathies (principal)
CPT/HCPCS: 36415; 80053; 83880